=== PATIENT | female | born 1985 | race Hispanic/Latino ===

== ENCOUNTER 2017-04-22 01:47 | Emergency (ER) | payer MEDICAID ==
[2017-04-22 02:24] LABS: #Basophils 0.1 thou/uL (0.0-0.2); #Eosinphils 0.1 thou/uL (0.0-0.7); #Lymphocytes 2.9 thou/uL (1.20-3.40); #Monocytes 0.7 thou/uL (0.11-0.59); #Neutrophils 10.6 thou/uL (1.40-6.50); %Basophils 0.8 % (0.0-1.0); %Eosinophils 0.9 % (0.0-10.0); %Lymphocytes 20.1 % (21.0-51.0); %Monocytes 4.8 % (0.0-10.0); %Neutrophils 73.4 % (42.0-75.0); Hemoglobin 12.4 g/dL (12.0-16.0); Mean Corpuscular HGB CONC 34.5 g/dL (32.0-36.0); Mean Corpuscular Hemoglobin 31.1 pg (27.0-31.0); Mean Corpuscular Volume 90.1 fl (81.0-99.0); Mean Platelet Volume 9.8 fL (7.4-10.4); Platelet Count 284 thou/uL (130-400); RBC Distribution Width 12.7 % (11.5-14.5); Red Blood Cell (RBC) Count 3.99 mill/uL (4.20-5.40); White Blood Cell (WBC) Count 14.4 thou/uL (4.8-10.8)
--- NOTE | 2017-04-22 09:11 | ULT ---
PRELIMINARY REPORT/[facility]/EMERGENCY AFTER HOURS PROCEDURE: EXAM: US First Trimester, Transabdominal CLINICAL HISTORY: 31 years old, female; Pain; complicated by abdominal or pelvic pain; Left upper quadrant; S econd trimester; Gestational age or lmp: 16w5d; ; Patient HX: Unknown lmp TECHNIQUE: Real-time transabdominal obstetrical ultrasound of the maternal pelvis and a first trimester pregnanc y with image documentation. COMPARISON: No relevant prior studies available. FINDINGS: Single living fetus in transverse position, head on the maternal left. Anterior placenta. No visible placental abnormality on the provided images. Amniotic fluid volume within normal limits. Cervical length was estimated with transabdominal scanning, measuring approximately 4.1 cm. No definite cervical canal dilation or fluid on the provided images. BPD: , 3.4 cm. , 16 weeks, 3 days HC: , 12.5 cm. , 16 weeks, 2 days AC: , 11.0 cm. , 16 weeks, 6 days FL: , 2.4 cm. , 17 weeks, 1 day Composite age: 16 weeks, 5 days. Estimated weight: 173 grams. heart activity documented by the technologist, 162 bpm. Evaluation of anatomy still limited by early gestation. Detailed/complete evaluation of anatomy was not performed at this time. Followup of anatomy later in recommended, as clinically appropriate. No visible maternal adnexal abnormality. Neither ovary is definitely visualized at this time. The urinary bladder was not completely evaluated/imaged at this time. IMPRESSION: Single living fetus, composite age: 16 weeks, 5 days. Anterior placenta. No visible placental abnormality on the provided images. Normal amniotic fluid volume. Other details discussed above. Thank you for allowing us to participate in the care of your patient. Dictated and Authenticated by: Jesus Terrell MD 04/22/2017 3:35 AM Central Time ([place] & [place]) FINAL REPORT OB ULTRASOUND: Date: 04/22/17 HISTORY: Abdominal pain. FINDINGS: This is the final report. Preliminary report proved by [facility]. I concur with the preliminary report from [facility]. Multiple longitudinal and transverse images of the pe lvis obtained using a multihertz curvilinear transducer. Real-time, color flow, and spectral waveform Doppler analysis used to evaluate the fetus. Findings suggest an estimated gestational age of 16 weeks/5 days. Patient has an estimated weig ht of 173 gm. Cardiac activity is confirmed, measuring 162 beats/minute. The placenta is anterior. The fetus is in a transverse presentation. anatomic survey is too ear ly to be evaluated. Correlate with elective evaluation. IMPRESSION: Viable intrauterine . POS: BRANDEE
== END 2017-04-22 03:54 | disposition home or self-care (01) ==
LOC: ERS 01:47
DX: O99.89 Other specified diseases and conditions complicating pregnancy, childbirth and the puerperium (principal); R10.12 Left upper quadrant pain; Z3A.16 16 weeks gestation of pregnancy
CPT/HCPCS: 36415; 76805; 84702; 85025; 86900; 86901

== ENCOUNTER 2017-09-04 15:52 | Day surgery (SDC) | payer MEDICAID, SELFPAY ==
[2017-09-04 16:42] VITALS: BP 124/71; TEMP 98.7
[2017-09-04 16:43] VITALS: BMI 44.9
--- NOTE | 2017-09-04 17:35 | PDOC.FPROB ---
FMR OB H&P: HPI - History of Present Illness Chief Complaint: Pelvic pressure, R/O labor History of Present Illness: This is a 31 F (with a hx of GERD GDM) @ 36 wks by 16.5 wk US, EDC of . She presents for vaginal pressure that she has had frequently throughout her , worse with walking. She also had light headedness, black spots in her vision, and SOB feeling like she was going to pass out that started this morning at 10 AM. She drank water and rested and felt better by 3 PM. Because she wasn't feeling well, she missed her clinic appointment (for her BPP) and was sent here. She also complains of upper abdominal pressure that is tender to palpation. She has a history of lithotripsy 4 years ago and has been having "heartburn." She is taking nexium. Denies headache, fever chills, cough, nausea or vomiting, diarrhea, or constipation. Denies weakness or numbness, denies calf pain. She is feeling baby move, has not had vaginal bleeding, denies loss of fluid. For her GDM, she has not been checking her sugars because her "strips aren't working." She says she last checked a post-prandial a couple weeks ago and her number was 131. She is on metformin. Primary Care Physician: Dr. Hayden Hernández FMR OB H&P: Current - Care : 3 Para: 2001 Gestational age: 36.0 wks Due date: 10/02/17 Dating Criteria: 16.5 wk sono Course/Complications: GDM, GERD - OB Labs RH: positive HIV: negative RPR: negative Rubella: immune Quad screen: negative Urine drug screen: negative Gonorrhea: negative Chlamydia: negative 1 hour gtt: 181 3 hour GTT: 104/198/154/154 H&H: 31.8/10.6 FMR OB H&P: History - Past Medical History PMH: GDM, GERD, Lithotripsy 4 years ago - OB History OB History: 2 prior healthy vaginal deliveries at 39 and 40 weeks - Surgical History Sx History: Lithotripsy four years ago - Social History Social History: Denies any T/A/D use - Family History Family History: Father and mother with diabetes FMR OB H&P: Medications - Current Home Medications: Medication Instructions Recorded Confirmed Type Esomeprazole Magnesium [NexIUM] 20 mg PO DAILY 09/04/17 09/04/17 History Vitamin 1 tablet PO DAILY 09/04/17 09/04/17 History metFORMIN [Glucophage] 500 mg PO BID 09/04/17 09/04/17 History Allergies/Adverse Reactions: Allergies Allergy/AdvReac Type Severity Reaction Status Date / Time morphine AdvReac ITCHING, Verified 06/06/15 16:18 HEART RACING FMR OB H&P: ROS - Review of Systems General: denies: fever/chills Eyes: reports: vision changes (black spots in vision). denies: eye pain ENT: denies: nasal congestion, rhinorrhea, ear pain, sore throat Cardiovascular: denies: chest pain, edema Respiratory: reports: shortness of breath. denies: cough, congestion Gastrointestinal: reports: abdominal pain (mid epigastric). denies: nausea, vomiting, diarrhea, constipation Genitourinary (Female): reports: vaginal discharge (normal, white creamy, no smell), vaginal pain, vaginal pressure. denies: vaginal bleeding Neurologic: denies: numbness, weakness Psychological: denies: depression, anxiety FMR OB H&P: Vital Signs - Maternal Vital signs: Vital Signs - First Documented Temp Pulse Resp BP 98.7 F 96 24 H 124/71 09/04/17 16:39 09/04/17 16:39 09/04/17 16:39 09/04/17 16:39 - Heart Tones Baseline: 150 Variability: moderate Acceleration: present Category: category 1 (Would be category 1 (if she was not remote from delivery)) FMR OB H&P: Physical Exam - Physical Exam General: NAD, awake, alert and oriented HEENT: normocephalic and atraumatic, EOMI, MMM, grossly normal hearing, oropharynx clear Heart: RRR, normal S1/S2, no murmurs/rubs/gallops, pulses present, other ( slight edema, 1+ in lower legs) General: CTAB, no respiratory distress, good air movement, no rales/rhonchi, no wheezing, no retractions Abdomen: gravid, bowel sound present Skin: no rash, good tugor, capillary refill <2 seconds Psychiatric: intact recent and remote memory, normal mood and affect, other ( Poor insight) - Pelvic Exam SVE: 2/25%/-3 FMR OB H&P: A/P Discussion: Date/Time: 09/04/171728 This is a 31 F (with a hx of GERD GDM) @ 36 wks by 16.5 wk US, EDC of , here for rule out of labor. #R/O of Labor -Vitals are stable -SVE 2/25%/-3 -Has vaginal pain and pressure, not of new onset -Denies LOF, vag bleeding, and baby is moving well, denies painful contractions (only has pain when cervix is being checked) -I do not think she is in labor at this time. NSTs are reassuring. Will do a BPP at this time. Will recheck her cervix in 2 hours, and if no change consider sending her home on labor precautions. -GBS status unknown, will order #GDM -Has not been taking home sugars because "strips weren't working" -Accucheck -Diet: constant carb -BPP #GERD -takes nexium at home
[2017-09-04 18:29] LABS: Glucose Accucheck Confirmation 70 mg/dl (70-105)
--- NOTE | 2017-09-04 21:41 | ULT ---
BIOPHYSICAL PROFILE ULTRASOUND: 09/04/17 HISTORY: Gestational diabetes. A single viable intrauterine is noted. heart rate is 153 beats per minute. The fetus is vertex. The placenta is anterior. Amniotic fluid index is 17.1. biophysical profile score is 8 of a possible 8. IMPRESSION: 1. biophysical profile - 8 of a possible 8. 2. Although the amniotic fluid index is calculated at 17.1, visually the fluid is borderline. POS: MADDIE
== END 2017-09-04 20:35 | disposition home or self-care (01) ==
LOC: L&D/OP 15:52
DX: O47.03 False labor before 37 completed weeks of gestation, third trimester (principal); O24.415 Gestational diabetes mellitus in pregnancy, controlled by oral hypoglycemic drugs; O99.613 Diseases of the digestive system complicating pregnancy, third trimester; K21.9 Gastro-esophageal reflux disease without esophagitis; Z79.84 Long term (current) use of oral hypoglycemic drugs; Z79.899 Other long term (current) drug therapy; Z88.5 Allergy status to narcotic agent; Z3A.36 36 weeks gestation of pregnancy
CPT/HCPCS: 36415; 76819; 82947; 87081

== ENCOUNTER 2017-09-29 06:21 | Inpatient (IN) | payer OTHER ==
--- NOTE | 2017-09-29 06:42 | PDOC.LDHP ---
Labor and Delivery H&P Chief complaint: scheduled induction HPI: This is a 31 yo at 39.4 wks by 16.5 wk US who presents to L&D for a scheduled induction. She currently reports abdominal pressure, SOB with exertion , and mild dizziness. She denies chest pain, leg cramping, contractions, lof, vaginal bleeding, or headaches. Current gestational age (weeks): 39 (39.4) Due date: 10/02/17 Dating criteria: second trimester ultrasound (16.5 wk) Grav: 3 Para: 2 (2001) OB History Details: 2 prior vaginal deliveries at 39 and 40 weeks. Current complications: gestational diabetes Abnormal US findings: No Past Medical History: GERD Current medications: pre-reno vitamins, other (Nexium 20mg daily, Metformin 500mg BID) Previous surgical history: other (Lithotripsy four years ago) Social history: none - Physical Exam Vital signs reviewed and normal: yes General: NAD, resting Heart: RRR Lungs: nonlabored breathing Abdomen: NTTP Extremeties: trace edema FHT: category 1 (FHT baseline 150s, moderate variability,), variability present [place] contractions every: No pattern, sporatic Q 20minutes - Vaginal Exam cm dilated: 4 (4cm) Effacement: 0% Station: -3 - OB Labs Blood type: O RH: positive Antibody Screen: negative HIV: negative RPR: negative HEPSAg: negative GBS: negative Urine drug screen: negative Rubella: immune - Assessment L&D Assessment: elective induction at term - Plan Plan: admit to L&D, labor augmentation if indicated -: This is a 31 yo at 39.4wks by a 16.5 wk ultrasound with a PMH of GDM, GERD sIUP at 39.4 wks -Admit to L&D for scheduled induction. Pt. is currently a 4/0/-3 and has a riddle score of 4-6. We will begin pitocin induction and recheck in 2 hours and AROM at that time. Bedside US confirms cephalic positioning. GDM -Pt. is on metformin 500mg BID. We will monitor for changes in her blood glucose as well as monitor baby post for hypoglycemia. GERD -Continue home nexium <Jax Mayberry - Last Filed: 09/29/17 08:21> - Assessment L&D Assessment: medically indicated induction (Delivery indicated for A2GDM at 39w) <Cassidy Salazar - Last Filed: 09/29/17 11:46> Allergies/Adverse Reactions: Allergies Allergy/AdvReac Type Severity Reaction Status Date / Time morphine AdvReac ITCHING, Verified 09/29/17 06:53 HEART RACING Attending Addendum - Attending Addendum Date/Time: 09/29/17 1136 I personally evaluated the patient and discussed the management with Dr. Mayberry I agree with the History, Examination, Assessment and Plan documented above with any addition or exceptions noted below. 31 yo at 39w4d dated by 16w5d US presenting for scheduled induction of labor for A2GDM complicated by A2GDM controlled with metformin 500mg BID. It is unclear how well controlled she has been since she has not brought logs to past several visits. Cervix 4/50/-3 on my exam Pt did have some elevated BP at the time she got her epidural. She reports severe anxiety at that time. Denies ARTIS, vision changes or ruq pain. 1. Medically indicated IOL for A2GDM. -start pitocin per protocol -GBS negative -Cat I FHT - Cephalic presentation confirmed by US -Anticipate 2. A2GDM -Check glucose q2hr. 3. Elevated BP -Will continue to check q15min and send pre-e labs if she continues to have elevated BP. <Cassidy Salazar - Last Filed: 09/29/17 11:46>
[2017-09-29 06:57] VITALS: BMI 48.6
[2017-09-29] MEDS ORDERED: Ondansetron HCl/PF 4 MG/2 ML Vial IVP PRN ×3 (07:08→19:11)
[2017-09-29] MEDS ORDERED: Acetaminophen 500 MG TAB PO PRN (07:08)
[2017-09-29] MEDS ORDERED: Lidocaine 1% (PF) 30 ML VIAL SC PRN (07:08)
[2017-09-29] MEDS ORDERED: Promethazine HCl 25 MG/ML VIAL IM PRN ×3 (07:08→19:11)
[2017-09-29] MEDS ORDERED: Acetaminophen/Codeine 30-300mg Tablet PO PRN (07:08)
[2017-09-29 07:28] LABS: Hemoglobin 11.5 g/dL (12.0-16.0); Mean Corpuscular HGB CONC 34.3 g/dL (32.0-36.0); Mean Corpuscular Hemoglobin 29.2 pg (27.0-31.0); Mean Corpuscular Volume 85.2 fL (78.0-98.0); Mean Platelet Volume 11.1 fL (7.4-10.4); Platelet Count 185 thou/uL (130-400); Red Blood Cell (RBC) Count 3.92 mill/uL (4.20-5.40); White Blood Cell (WBC) Count 10.1 thou/uL (4.8-10.8)
[2017-09-29] MEDS ORDERED: NS w/ Oxytocin 10 units 500 ML ONE (07:32)
[2017-09-29] MEDS: Lactated Ringer's 1,000 ML IV SCH ×2 (07:40→10:39)
[2017-09-29] MEDS ORDERED: Bupivacaine 0.5% 20 ML, fentaNYL Citrate/PF 400 MCG in Sodium Chloride 0.9% 72 ML EPIDURAL SCH (07:45)
[2017-09-29] MEDS ORDERED: DISCONTINUE ALL PREVIOUS NARCOTICS FS SCH (07:45)
[2017-09-29 08:14] LABS: Syphilis Antibody Nonreactive (Nonreactive); Syphilis Antibody Index 0.04 S/CO (<1.00 Non-Reactive)
[2017-09-29 08:15] LABS: HBSAg Index 0.23 S/CO (0-0.99); Hep B Surf Ag Non-Reactive S/CO (NonReactive)
[2017-09-29 08:25] LABS: Glucose 100 mg/dL (70-105)
[2017-09-29] MEDS ORDERED: NS w/ Oxytocin 10 units 500 ML IV SCH (08:30)
[2017-09-29] MEDS ORDERED: Bupivacaine/Epinephrine 0.25% 30 ML VIAL ONE (09:00)
[2017-09-29] MEDS ORDERED: Acetaminophen 325 MG TAB PO PRN (10:37)
[2017-09-29] MEDS ORDERED: diphenhydrAMINE 50 MG/ML VIAL IVP PRN (10:37)
[2017-09-29] MEDS ORDERED: Eucerin (Mineral Oil/Petrolatum,White) 30 gm Jar TOP PRN (10:37)
[2017-09-29] MEDS ORDERED: Naloxone HCl 0.4 mg/ml Vial IVP PRN ×2 (10:37)
[2017-09-29] MEDS ORDERED: Lactated Ringer's 500 ML IV PRN (10:37)
[2017-09-29] MEDS ORDERED: ePHEDrine/0.9% NaCl/PF SYRINGE 50 mg/10 ml SLOW IVP PRN (10:37)
[2017-09-29] MEDS ORDERED: Communication Order-Pharmacy FS SCH (10:45)
[2017-09-29] MEDS ORDERED: fentaNYL Citrate/PF 400 MCG, Bupivacaine 0.5% 20 ML in Sodium Chloride 0.9% 72 ML EPIDURAL SCH (10:45)
--- NOTE | 2017-09-29 13:09 | PDOC.LDPN ---
Labor & Delivery Progress Note - Subjective Subjective: comfortable - Objective Abnormal vital signs: BP 160/105 General: NAD, resting Uterine fundus: palpable contractions Dilation: 5 Effacement: 100% Station: -2 FHT: category 1, variability present [place] contractions every: q1-4min - Assessment (1) Term Code(s): Z34.80 - ENCOUNTER FOR SUPRVSN OF NORMAL , UNSP TRIMESTER Current Visit: Yes Status: Acute Comment: -term @ 39.4 wks here for induction due to GDM A2 and poor outpatient follow up -pt started on pitocin, currently at 14 milliu/min -epidural in place -recent BPs have been elevated, some concern 2/2 to anxiety but with severe range pressures, will obtain blood and urine to rule out preeclampsia (2) GDM, class A2 Code(s): O24.419 - GESTATIONAL DIABETES MELLITUS IN , UNSP CONTROL Current Visit: Yes Status: Acute Comment: -accuchecks have been normal thus far Plan: continue plan of care, pitocin for augmentation -: Continue to monitor FHTs closely. Pre-E work up pending. Accuchecks q2h. <Jeet Lundy - Last Filed: 09/29/17 13:07> Attending Addendum - Attending Addendum Date/Time: 09/29/17 0843 I personally evaluated the patient and discussed the management with Dr. Lundy I agree with the History, Examination, Assessment and Plan documented above with any addition or exceptions noted below. BP has been labile but when checked with appropriate sized cuff the BP has been normal. 2 severe range pressures were taken with wrist cuff but when rechecked immediately after with large arm cuff it was WNL. Will send preeclampsia labs as a precaution. Pt remains asymptomatic. Cervix 7/100/-1 AROMed for a moderate amount of clear fluid FHT: 150/moderate variability/accels present/no decels, cat I tracing. Continue current management. Anticipate <Cassidy Salazar - Last Filed: 09/29/17 14:11>
[2017-09-29 14:07] LABS: Creatinine, Urine 83.32 mg/dL (47-110)
[2017-09-29 14:14] LABS: ALT (SGPT) 17 U/L (8-55); AST (SGOT) 23 U/L (5-34); Albumin 3.1 g/dL (3.5-5.0); Alkaline Phosphatase 129 U/L (40-150); Anion Gap 13 mmol/L (10-20); BUN (Urea Nitrogen) 11 mg/dL (7.0-18.7); Bilirubin, Total 0.4 mg/dL (0.2-1.2); Calc. Creatinine Clearance 210 mL/min (70-130); Calcium 8.8 mg/dL (7.8-10.44); Carbon Dioxide 19 mmol/L (22-29); Chloride 108 mmol/L (98-107); Estimated GFR-MDRD Greater than 90; Globulin 3.4 g/dL (2.4-3.5); Glucose 86 mg/dL (70-105); Potassium 4.3 mmol/L (3.5-5.1); Protein, Total 6.5 g/dL (6.0-8.3); Sodium 136 mmol/L (136-145)
[2017-09-29] MEDS: NS / Oxytocin 40 units/1000ml 1,000 ML IV PRN ×2 (16:10→17:23)
[2017-09-29] MEDS ORDERED: Preparation H Ointment 28 GM TUBE PR PRN (19:11)
[2017-09-29] MEDS ORDERED: diphenhydrAMINE 25 MG CAP PO PRN (19:11)
[2017-09-29] MEDS ORDERED: Benzocaine/Menthol 20-0.5% 60 ML CAN TOP PRN (19:11)
[2017-09-29] MEDS ORDERED: Bisacodyl 10 MG SUPP PR PRN (19:11)
[2017-09-29] MEDS ORDERED: Milk Of Magnesia 30 ML UDCUP PO PRN (19:11)
[2017-09-29] MEDS ORDERED: Ferrous Sulfate 325 MG TAB PO SCH (19:30)
[2017-09-29] MEDS ORDERED: Adacel (T-DAP) 0.5 ML VIAL IM ONE (20:00)
[2017-09-29] MEDS: Ibuprofen 800 MG TAB PO SCH (21:06)
[2017-09-29] MEDS: Docusate Calcium (SURFAK) 240 MG CAP PO SCH (21:06)
[2017-09-30] MEDS: Ibuprofen 800 MG TAB PO SCH ×3 (05:19→21:27)
[2017-09-30 05:36] LABS: Hemoglobin 9.4 g/dL (12.0-16.0)
--- NOTE | 2017-09-30 05:40 | PDOC.PP ---
Post Progress Note Post Day #: 1 Subjective: Pt. complains of some pain this morning. She states that her bleeding has been steady. She denies chest pain, dyspnea, SOB, or N/V/D. She would like to go today but is willing to stay until tomorrow if she needs to. PO intake tolerated: yes Flatus: yes Ambulation: yes (Without dizziness or lightheadedness) Vital Signs (12 hours) Temp Pulse Resp BP 09/30/17 00:00 98.4 F 77 16 121/59 L 09/29/17 21:00 98.7 F 80 16 132/65 09/29/17 20:00 98.0 F 90 16 136/72 09/29/17 19:00 98.0 F 89 20 140/64 Weight Weight 120.656 kg - Physical Examination General: NAD Cardiovascular: no m/r/g, RRR Respiratory: clear to auscultation bilaterally, non-labored breathing Abdominal: + bowel sounds, lochia (Current pad is not soaked, no blood oozing.) , no distention, appropriately TTP Fundus firm & at: umbilicus Extremities: negative homans (B) Neurological: no gross focal deficits Psychiatric: A&Ox3, normal affect Result Diagrams: 09/30/17 05:14 09/29/17 13:41 Additional Labs: Post Labs Blood Type O POSITIVE 09/29/17 07:05 Hep Bs Antigen Non-Reactive S/CO (NonReactive) 09/29/17 07:05 (1) Term Code(s): Z34.80 - ENCOUNTER FOR [facility] OF NORMAL , UNS TRIMESTER Status: Acute Comment: -term @ 39.4 wks here for induction due to GDM A2 and poor outpatient follow up -pt started on pitocin, currently at 14 milliu/min -epidural in place -recent BPs have been elevated, some concern 2/2 to anxiety but with severe range pressures, will obtain blood and urine to rule out preeclampsia (2) GDM, class A2 Code(s): O24.419 - GESTATIONAL DIABETES MELLITUS IN , UNSP CONTROL Status: Acute Comment: -accuchecks have been normal thus far (3) GERD (gastroesophageal reflux disease) Code(s): K21.9 - GASTRO-ESOPHAGEAL REFLUX DISEASE WITHOUT ESOPHAGITIS Status: Acute - Assessment/Plan This is a 31 yo G3 now P3 who delivered at 39.4wks PMH of GDM A2, GERD Term delivered -QBL was 1535 H/H dropped from 11.5 to 9.4. This is an appropriate decrease for the QBL. GDM A2 -Continue metformin 500mg BID Gerd -Continue home nexium Disposition: home tomorrow. <Jax Mayberry - Last Filed: 09/30/17 08:52> Vital Signs (12 hours) Temp Pulse Resp BP 09/30/17 16:00 99.1 F 79 18 09/30/17 12:46 99.1 F 79 18 135/64 09/30/17 12:00 98.1 F 81 18 09/30/17 08:00 98.1 F 81 18 142/85 H Weight Weight 120.656 kg Result Diagrams: 09/30/17 05:14 09/29/17 13:41 Additional Labs: Post Labs Blood Type O POSITIVE 09/29/17 07:05 Hep Bs Antigen Non-Reactive S/CO (NonReactive) 09/29/17 07:05 <Cassidy Salazar - Last Filed: 09/30/17 18:35> Attending Addendum - Attending Addendum Date/Time: 09/30/17 4603 I personally evaluated the patient and discussed the management with Dr. Mayberry I agree with the History, Examination, Assessment and Plan documented above with any addition or exceptions noted below. Doing well this morning. Bleeding is light. Ambulating without dizziness. Tolerating PO and voiding without difficulty. Appropriate drop in H+H given QBL. Pt is asymptomatic and vitals are stable D/C to home tomorrow <Cassidy Salazar - Last Filed: 09/30/17 18:35>
--- NOTE | 2017-09-30 08:00 | PDOC.OPDEL ---
OB Operative/Delivery Note Delivery Dr/Surgeon: Edgar Attending: Dr. Salazar Assist: Stacey Taylor, MS4 Pre-Delivery Diagnosis: medically indicated induction (for GDM A2) Weeks gestation: 39 (39.4) Anesthesia: epidural - Findings A Sex: female - 1 min: 9 - 5 min: 9 - Additional Findings/Plan Placenta delivered: manual removal Repaired Obstetrical Laceration: 2nd degree (s/p repair with hemostasis, local for anesthesia) Estimated blood loss: QBL 1560 ml Compilations/Other Findings: Delivering Physician: Edgar TORRES Attending: Martin TORRES Procedure: Spontaneous Vaginal Delivery Anesthesia: Epidural, Local for Repair QBL: 1560 ml Pre-op Diagnosis: 1. Term intrauterine in labor 2. GDM A2 Post-op Diagnosis: 1. Term intrauterine , delivered 2. GDM A2 Indications: A 31 y/o female presents for induction of labor 2/2 GDM A2 Delivery Note: This is 31yo F @ 39.4wks who delivered a viable TLGA F at 1608. Following an uneventful antepartum course, a vigorous F was delivered over an intact perineum in the OA position. Anterior Shoulder and then remainder of the body delivered. No nuchal cord. The head was held down and mouth and nares were bulb suctioned. Cord clamped after delayed cord clamping for one minute and cut and cord blood collected. Placenta delivered intact with a 3 vessel cord noted. Fundal massage was performed and the fundus was firm. The cervix and vagina were inspected and a 2nd degree Laceration noted and repaired with 3-0 Vicryl in the usual fashion with good approximation and hemostasis after a local anesthetic was injected at site. went to nursery in good condition for routine care. Apgars were _9_/_9_ at 1 & 5 minutes, respectively. Patient tolerated delivery well and went to after routine recovery/care. Post delivery plan: routine recovery <Hayden Hernández - Last Filed: 09/30/17 07:56> - Additional Findings/Plan Estimated blood loss: QBL 1360 ml Compilations/Other Findings: I was present for and assisted in the entire uncomplicated . QBL was 1360, not 1560. Perineum was not intact, 2nd degree perineal laceration was noted. There was a nuchal cord x 1 Upon inspection of the perineum after delivery of placenta, 2 brisk arterial bleeds were noted. They were clamped with Allis clamps. A figure of eight was placed to stop bleeding at both of the arterial sites with hemostasis noted. The perineal laceration was then repaired in usual fashion. <Cassidy Salazar - Last Filed: 09/30/17 08:53>
[2017-09-30] MEDS: Ferrous Sulfate 325 MG TAB PO SCH ×2 (09:13→17:53)
[2017-09-30] MEDS: Docusate Calcium (SURFAK) 240 MG CAP PO SCH ×2 (09:13→21:27)
[2017-10-01] MEDS: Ibuprofen 800 MG TAB PO SCH (05:22)
--- NOTE | 2017-10-01 07:14 | PDOC.PP ---
Post Progress Note Post Day #: 2 Subjective: Ryann Gordillo is a 31 year old F with a PMH of GDM A2 who was induced at 39.4 wks for GDM and delivered a TLGA female on 09/29/17 at 1608 via . Had 2nd degree lac s/p repair with hemostasis. Had QBL of 1360 cc. Vitals have stayed WNL since delivery. She is doing well, no complaints. Minimal vaginal bleeding, less than period. Tolerating pain well. Tolerating diet. Voiding normally. PO intake tolerated: yes Flatus: yes Ambulation: yes Vital Signs (12 hours) Temp Pulse Resp BP 09/30/17 20:35 98.1 F 83 18 134/69 Weight Weight 120.656 kg - Physical Examination General: NAD Cardiovascular: no m/r/g, RRR Respiratory: clear to auscultation bilaterally, non-labored breathing Abdominal: + bowel sounds, lochia (lochia rubra), no distention, appropriately TTP Neurological: no gross focal deficits Psychiatric: A&Ox3, normal affect Result Diagrams: 09/30/17 05:14 09/29/17 13:41 Additional Labs: Post Labs Blood Type O POSITIVE 09/29/17 07:05 Hep Bs Antigen Non-Reactive S/CO (NonReactive) 09/29/17 07:05 (1) Term Code(s): Z34.80 - ENCOUNTER FOR SUPRVSN OF NORMAL , UNSP TRIMESTER Status: Acute Comment: -term @ 39.4 wks here for induction due to GDM A2 and poor outpatient follow up -pt started on pitocin, currently at 14 milliu/min -epidural in place -recent BPs have been elevated, some concern 2/2 to anxiety but with severe range pressures, will obtain blood and urine to rule out preeclampsia (2) GDM, class A2 Code(s): O24.419 - GESTATIONAL DIABETES MELLITUS IN , UNSP CONTROL Status: Acute Comment: -accuchecks have been normal thus far (3) hemorrhage Code(s): O72.1 - OTHER IMMEDIATE HEMORRHAGE Status: Resolved (4) GERD (gastroesophageal reflux disease) Code(s): K21.9 - GASTRO-ESOPHAGEAL REFLUX DISEASE WITHOUT ESOPHAGITIS Status: Chronic - Assessment/Plan Ryann Gordillo is a 31 yo G3 now P3 who was induced at 39.4wks for GDM A2, delivered a TLGA female at 1608 on 09/29/17 via . 2nd degree lac s/p repair with hemostasis. PPH with QBL of 1360 cc. 1) Term -delivered: - recovering well, pain well controlled - routine post- course, continue routine pp care - dispo: likely home with baby today 2) Hemorrhage: - QBL was 1360 cc, 2nd degree lac with 2 brisk arterial bleeds noted, s/p repair with hemostasis. Minimal vag bleeding currently - H/H dropped from 11.5 to 9.4. This is an appropriate decrease for the QBL. - VS have remained WNL since delivery 3) GDM A2 - Continue metformin 500mg BID 4) Gerd - Continue home nexium Disposition: home today <Hayden Hernández - Last Filed: 10/01/17 07:12> Vital Signs (12 hours) Temp Pulse Resp BP 10/01/17 08:00 98.2 F 76 20 10/01/17 07:55 98.2 F 76 20 126/72 Weight Weight 120.656 kg Result Diagrams: 09/30/17 05:14 09/29/17 13:41 Additional Labs: Post Labs Blood Type O POSITIVE 09/29/17 07:05 Hep Bs Antigen Non-Reactive S/CO (NonReactive) 09/29/17 07:05 <Cassidy Salazar - Last Filed: 10/01/17 14:40> Attending Addendum - Attending Addendum Date/Time: 10/01/17 4394 I personally evaluated the patient and discussed the management with Dr. Hernández. I agree with the History, Examination, Assessment and Plan documented above with any addition or exceptions noted below.\ Stable PPD #2 s/p . meeting appropriate milestones. No tachycardia or symptoms of anemia. stable for d/c to home today <Cassidy Salazar - Last Filed: 10/01/17 14:40>
[2017-10-01 07:56] VITALS: BP 126/72; TEMP 98.2
[2017-10-01] MEDS: Ferrous Sulfate 325 MG TAB PO SCH (08:52)
[2017-10-01] MEDS: Docusate Calcium (SURFAK) 240 MG CAP PO SCH (08:52)
== END 2017-10-01 13:25 | disposition home or self-care (01) | DRG 774 ==
LOC: L&D 06:21 → 3SW 19:08
PROVIDERS: ADMIT Family Medicine; ATTEND Family Medicine
PROC: 3E033VJ Introduction of Other Hormone into Peripheral Vein, Percutaneous Approach (ICD-10-PCS; principal; 2017-09-29)
PROC: 10E0XZZ Delivery of Products of Conception, External Approach (ICD-10-PCS; 2017-09-29)
PROC: 0KQM0ZZ Repair Perineum Muscle, Open Approach (ICD-10-PCS; 2017-09-29)
DX: O24.429 Gestational diabetes mellitus in childbirth, unspecified control (principal); O72.1 Other immediate postpartum hemorrhage; Z37.0 Single live birth; Z3A.39 39 weeks gestation of pregnancy; K21.9 Gastro-esophageal reflux disease without esophagitis; R03.0 Elevated blood-pressure reading, without diagnosis of hypertension; O70.1 Second degree perineal laceration during delivery; Z79.84 Long term (current) use of oral hypoglycemic drugs
CPT/HCPCS: 36415; 36416; 51702; 76815; 82570; 82947; 84156; 85014; 85018; 85027; 86780; 86850; 86900; 86901; 87340; 90715; J2001; J3010; J3490; J7050